=== PATIENT | male | born 1985 | race Caucasian/White ===

== ENCOUNTER 2021-08-18 17:57 | Emergency (ER) | payer BC ==
[2021-08-18 20:23] LABS: RED BLOOD COUNT 6.15 M/UL (4.20-5.50); WHITE BLOOD COUNT 12.3 K/UL (4.5-11.0)
[2021-08-18 20:41] LABS: BUN/CREATININE RATIO 15 (0-10)
[2021-08-18 20:55] LABS: HEMOGLOBIN 20.1 gm/dl (14.0-17.5)
== END 2021-08-18 23:38 | disposition home or self-care (01) ==
LOC: ER1 17:57
PROVIDERS: Physician Assistant
DX: N50.812 Left testicular pain (principal); D75.1 Secondary polycythemia
CPT/HCPCS: 76870; 80053; 81001; 85025; 87086; 99284

== ENCOUNTER → 2021-10-29 | Outpatient (CLI) | payer BC | LOC: SLEEP-COR 08:40 | DX: R06.83 Snoring (principal); D75.1 Secondary polycythemia | CPT/HCPCS: 95810 ==